=== PATIENT | male | born 1955 | race Caucasian/White ===

== ENCOUNTER 2023-07-16 11:53 | Outpatient (CLI) | payer MEDICARE | END 2023-07-16 11:54 | disposition critical access hospital (66) | LOC: EMS 11:53 | DX: R55 Syncope and collapse (principal); S09.90XA Unspecified injury of head, initial encounter; R41.0 Disorientation, unspecified; R42 Dizziness and giddiness; W18.39XA Other fall on same level, initial encounter; Y92.59 Other trade areas as the place of occurrence of the external cause | CPT/HCPCS: A0425; A0427 ==

== ENCOUNTER 2023-07-16 12:17 | Emergency (ER) | payer MEDICARE ==
[2023-07-16] MEDS ORDERED: SODIUM CHLORIDE 0.9% 1,000 ML IV STA (12:27)
--- NOTE | 2023-07-16 12:30 | ED Physician Documentation ---
History of Present Illness - Stated complaint Stated Complaint: SYNCOPE - Additonal information Additional information: 68-year-old male is brought to the emergency department for evaluation of a syncopal episode. Reportedly this gentleman [place] and visiting from [place]. He is in a vehicle. He was trying to check into a local motel when he suddenly collapsed. He did fall backwards striking his head. Lapse in consciousness for a few seconds. EMS was summoned to the scene. On arrival they described him as diaphoretic. They also noted that he had a low blood pressure of 98/50. His blood sugar was 123. EKG showed sinus rhythm with PACs. They states that when he woke up he was quite repetitive in his questioning and did not remember the event. Patient describes himself as healthy and takes no medications. Denies any history of hypertension or diabetes. He is a pack per day tobacco user. Also endorses a sixpack of beer daily. Nothing on scene to suggest seizure-like activity, loss of bowel or bladder function. Presentation the emergency department the patient is alert and oriented. Reports that he thinks he fainted but does not remember the event. Denies chest pain or shortness of air. He has a blood pressure of 126/53. EKG is sinus on the monitor. No fevers. Unremarkable cardiopulmonary exam. Normal neurological exam. NIHSS is 0. Review of Systems Constitutional: reports: Reviewed and negative Nose: reports: Reviewed and negative Cardiac: reports: Reviewed and negative Respiratory: reports: Reviewed and negative GI: reports: Reviewed and negative : reports: Reviewed and negative Skin: reports: Reviewed and negative Musculoskeletal: reports: Reviewed and negative Neurologic: reports: Numbness, Difficulty speaking, Near syncope, Syncope, LOC. denies: Confused, Headache, Head injury Psychiatric: reports: Reviewed and negative PD PAST MEDICAL HISTORY - Allergies Allergies/Adverse Reactions: Allergies Allergy/AdvReac Type Severity Reaction Status Date / Time codeine Allergy Nausea Verified 07/16/23 12:42 PD ED PE NORMAL - General General: Alert and oriented X 3, No acute distress - HEENT HEENT: PERRL. No: Moist mucous membranes (Dry mouth and tongue) - Neck Neck: Supple, no meningeal sign - Cardiac Cardiac: RRR, No murmur, Strong equal pulses - Respiratory Respiratory: No respiratory distress, Clear bilaterally - Abdomen Abdomen: Normal bowel sounds, Soft - Back Back: No CVA TTP - Derm Derm: Normal color, Warm and dry - Neuro Neuro: Alert and oriented X 3, head of english 2-12 intact Eye Opening: Spontaneous Motor: Obeys Commands Verbal: Oriented GCS Score: 15 Results - Vitals Vitals: Vital Signs - 24 hr 07/16/23 07/16/23 07/16/23 12:38 13:56 13:58 Temperature 36.6 C Heart Rate 95 Heart Rate [ 94 Sitting] Heart Rate [ 96 Standing] Heart Rate [ 91 Supine] Respiratory 17 Rate Blood Pressure 121/83 H 120/84 H Blood Pressure 132/82 H [Sitting] Blood Pressure 120/84 H [Standing] Blood Pressure 123/90 H [Supine] O2 Saturation 100 07/16/23 15:00 Temperature Heart Rate 83 Heart Rate [ Sitting] Heart Rate [ Standing] Heart Rate [ Supine] Respiratory 18 Rate Blood Pressure 130/109 H Blood Pressure [Sitting] Blood Pressure [Standing] Blood Pressure [Supine] O2 Saturation 98 Oxygen O2 Source Room air - EKG (time done) 1228 EKG releavant findings:: EKG personally interpreted by author of this note. Relevant findings are: Rate: Rate (enter#) (93) Rhythm: NSR [place]: Normal Intervals: Normal [place]. No: Prolonged QT QRS: Poor R wave progression Ischemia: Normal ST segments Compare to prior EKG: Old EKG unavailable Computer interpretation: Agree with computer - Labs Labs: Laboratory Tests 07/16/23 07/16/23 07/16/23 12:42 12:42 14:33 WBC 7.5 RBC 3.87 L Hgb 11.5 L Hct 34.3 L MCV 88.6 MCH 29.7 MCHC 33.5 RDW 13.8 Plt Count 267 MPV 9.6 Neut # (Auto) 5.0 Lymph # (Auto) 1.5 [place] # (Auto) 0.7 Eos # (Auto) 0.2 Baso # (Auto) 0.1 Absolute Nucleated RBC 0.00 Nucleated RBC % 0.0 Sodium 141 Potassium 3.5 Chloride 108 Carbon Dioxide 26 Anion Gap 7.0 BUN 10 Creatinine 0.7 Estimated GFR (MDRD) 112 Glucose 84 Calcium 8.7 Phosphorus 3.1 Magnesium 1.6 L Total Bilirubin 0.7 AST 13 ALT 15 Alkaline Phosphatase 70 Troponin I High Sens 155.0 H* 147.0 H* Total Protein 5.6 L Albumin 3.6 Globulin 2.0 L Albumin/Globulin Ratio 1.8 Lipase 19 Ethyl Alcohol 54.0 - Rads (name of study) right leg Relevant Findings:: Final report received (No acute bony abnormality. No gross radiopaque foreign bodies are seen.) Procedures - Laceration (location) right leg Length in cm: 5 Wound type: Curved, Irregular, Into muscle, Contaminated Neurovascular status: Sensory intact Anesthesia: Lidocaine 1% Wound preparation: Chlorhexadine, Irrigated copiously NS, Debrided moderately Skin layer closure: Interrupted, Size #-0 - enter number (4), Sutures - enter # (8) Other: No complications, Tetanus UTD PD Medical Decision Making - ED course Complexity details: reviewed results, d/w patient ED course: 68-year-old male presents emergency department for evaluation of syncope. Was checking into a local hotel when he just suddenly fainted. He does not remember the fainting event but denies that he was having chest pain or shortness of air. No palpitations. On presentation the emergency department he reported that he felt fine and was desiring to be discharged. For EMS he was noted to have a mildly low blood pressure in the 90s over 60s but on presentation to the emergency department was normotensive. His EKG showed sinus rhythm without ischemic changes. His orthostatics were negative. In total the patient received a liter of IV fluid. He was denying chest pain and shortness of air for the entire duration of his ED visit. We did obtain CBC, electrolytes and troponin. Initial troponin was 155. On repeat about 90 minutes later static at 147. I discussed with patient my concern that the cause of his syncope could have been a cardiac arrhythmia resulting in an NSTEMI or even a primary type II PR. However [facility] does not have cardiology services. I offered to transfer the patient to a [facility] that would have the capability for stress testing and further restratification. The patient declined to stay. He chose to leave AGAINST MEDICAL ADVICE. He understands that he can return at any time with no questions asked. While here in the emergency department he did receive 325 mg of aspirin and was advised to begin taking a daily aspirin on discharge. He was also advised on how imperative in urgent it is that he get seen by a acid tank cleaner. It should be noted the patient lives in [place] and is visiting the [facility]. The usual emergent return precautions were discussed. Departure - Departure Disposition: Against Medical Advice Clinical Impression: NSTEMI (non-ST elevated myocardial infarction) Syncope Qualifiers: Syncope type: unspecified Qualified Code(s): R55 - Syncope and collapse Condition: Stable Record reviewed to determine appropriate education?: Yes Instructions: Heart Attack Dc Comments: Calderon you are seen today in the emergency department after fainting when getting ready check into a hotel. Your labs today showed signs that you are having a heart attack. Your troponin level was elevated. I believe you are having a form of heart attack called a non-ST elevated myocardial infarction. I have offered to continue to treat you here or transfer you to a hospital that has a higher level of care. You have declined to stay. You are leaving AGAINST MEDICAL ADVICE with the understanding that you can return at any time for further care and evaluation, no questions asked. It is imperative however that you stop smoking and try to cut back the amount you drink. I would recommend that you begin taking a daily 81 mg aspirin. You will need to be seen by a acid tank cleaner in the very near future for further evaluation, testing and risk management of your heart attack.
[2023-07-16 12:48] LABS: BASOPHILS # (AUTO) 0.1 10^3/uL (0.0-0.1); BASOPHILS % (AUTO) 1.1 %; EOSINOPHILS # (AUTO) 0.2 10^3/uL (0.0-0.7); EOSINOPHILS % (AUTO) 2.4 %; HCT - HEMATOCRIT 34.3 % (42.0-52.0); HGB - HEMOGLOBIN 11.5 g/dL (14.0-18.0); LYMPHOCYTES # (AUTO) 1.5 10^3/uL (1.5-3.5); LYMPHOCYTES % (AUTO) 20.2 %; MEAN CORPUSCULAR HEMOGLOBIN 29.7 pg (27.0-31.0); MEAN CORPUSCULAR HGB CONC 33.5 g/dL (32.0-36.0); MEAN CORPUSCULAR VOLUME 88.6 fL (80.0-94.0); MEAN PLATELET VOLUME 9.6 fL (7.4-11.4); MONOCYTES # (AUTO) 0.7 10^3/uL (0.0-1.0); MONOCYTES % (AUTO) 9.6 %; NEUTROPHILS % (AUTO) 66.4 %; PLT - PLATELET COUNT 267 10^3/uL (130-450); RED BLOOD COUNT 3.87 10^6/uL (4.70-6.10); RED CELL DISTRIBUTION WIDTH 13.8 % (12.0-15.0); WHITE BLOOD COUNT 7.5 x10^3/uL (4.8-10.8)
--- NOTE | 2023-07-16 12:54 | XRAY Report ---
PROCEDURE: Chest 1 View X-Ray INDICATIONS: Chest Pain TECHNIQUE: One view of the chest was acquired. COMPARISON: None. FINDINGS: Surgical changes and devices: None. Lungs and pleura: No pleural effusions or pneumothorax. The lungs are clear. Mediastinum: Mediastinal contours appear normal. Heart size is normal. Bones and chest wall: No suspicious bony lesions. Overlying soft tissues appear unremarkable. IMPRESSION: No acute cardiopulmonary process. Reviewed by: Tanvir Rivera MD on 07/16/2023 12:53 PM PDT Approved by: Tanvir Rivera MD on 07/16/2023 12:53 PM PDT Station ID: [id number]
[2023-07-16 13:08] LABS: ALBUMIN 3.6 g/dL (3.2-5.5); ALBUMIN/GLOBULIN RATIO 1.8 (1.0-2.2); BILIRUBIN,TOTAL 0.7 mg/dL (0.2-1.0); CALCIUM 8.7 mg/dL (8.5-10.3); CREATININE 0.7 mg/dL (0.6-1.3); MAGNESIUM 1.6 mg/dL (1.7-2.3); PHOSPHORUS 3.1 mg/dL (2.5-5.0); POTASSIUM 3.5 mmol/L (3.5-4.5); TOTAL PROTEIN 5.6 g/dL (6.4-8.9)
[2023-07-16] MEDS ORDERED: ASPIRIN 325 MG TABLET PO STA (13:41)
[2023-07-16 15:14] VITALS: BP 130/109; O2SAT 98
== END 2023-07-16 15:53 | disposition left against medical advice (07) ==
LOC: ED 12:17
DX: I21.4 Non-ST elevation (NSTEMI) myocardial infarction (principal)
CPT/HCPCS: 36415; 71045; 80053; 83690; 83735; 84100; 84484; 85025; 93005; 96360; 96361; 99284; A9270; G0480; 80320

== ENCOUNTER 2023-07-17 09:25 | Outpatient (CLI) | payer MEDICARE | END 2023-07-17 09:26 | disposition critical access hospital (66) | LOC: EMS 09:25 | DX: M79.604 Pain in right leg (principal); M25.511 Pain in right shoulder; W01.0XXA Fall on same level from slipping, tripping and stumbling without subsequent striking against object, initial encounter; Y92.481 Parking lot as the place of occurrence of the external cause | CPT/HCPCS: A0425; A0429 ==

== ENCOUNTER 2023-07-17 09:47 | Emergency (ER) | payer MEDICARE ==
[2023-07-17] MEDS ORDERED: MORPHINE 2 MG/ML CARPUJECT IVP STA (10:21)
[2023-07-17] MEDS ORDERED: ONDANSETRON 4 MG/2 ML VIAL IVP STA (10:21)
[2023-07-17] MEDS ORDERED: HYDROmorphone 1 MG/ML CARPUJECT IVP STA (11:12)
--- NOTE | 2023-07-17 11:12 | XRAY Report ---
PROCEDURE: Hip w/Pelvis 2-3V RT INDICATIONS: fall/pain TECHNIQUE: AP pelvis with lateral view(s) of the right hip(s). COMPARISON: Correlation is made with the accompanying plain films. FINDINGS: Bones: There is a moderately displaced, moderately angulated, mildly comminuted fracture through the mid portion of the right femoral neck. No hip dislocation is seen. No fractures of the bones of the pelvis Soft tissues: No suspicious soft tissue calcifications or masses. IMPRESSION: Moderately displaced, moderately angulated femoral neck fracture. Reviewed by: Konrad Worrell MD on 07/17/2023 10:11 AM [facility] Approved by: Konrad Worrell MD on 07/17/2023 10:11 AM [facility] Station ID: [id number]
--- NOTE | 2023-07-17 11:13 | XRAY Report ---
PROCEDURE: Knee 3 View RT INDICATIONS: fall/pain TECHNIQUE: 3 views of the right knee(s) were acquired. COMPARISON: Correlation is made with the accompanying plain films. FINDINGS: Bones: No fractures or dislocations. No suspicious bony lesions. The joint spaces appear well-prese rved. Mild underlying degenerative changes are seen. Soft tissues: No knee joint effusion. No suspicious soft tissue calcifications or masses. IMPRESSION: No acute bony abnormality. Reviewed by: Konrad Worrell MD on 07/17/2023 10:12 AM [facility] Approved by: Konrad Worrell MD on 07/17/2023 10:12 AM [facility] Station ID: [id number]
--- NOTE | 2023-07-17 11:13 | XRAY Report ---
PROCEDURE: Shoulder 3 View RT INDICATIONS: fall/pain TECHNIQUE: 3 views of the shoulder were acquired. COMPARISON: Correlation is made with the accompanying plain films. FINDINGS: Bones: There is an impacted, comminuted fracture of the right humeral head and neck. No dislocation can be seen. The visualized ribs appear intact. Age-appropriate degenerative changes are seen. Soft tissues: No suspicious soft tissue calcifications. The visualized lungs are within normal limi ts. IMPRESSION: Impacted, comminuted fracture of the right humeral head and neck. Reviewed by: Konrad Worrell MD on 07/17/2023 10:11 AM [facility] Approved by: Konrad Worrell MD on 07/17/2023 10:11 AM [facility] Station ID: [id number]
--- NOTE | 2023-07-17 11:14 | XRAY Report ---
PROCEDURE: Ankle 3 View RT INDICATIONS: fall/pain TECHNIQUE: 3 views of the ankle were acquired. COMPARISON: Correlation is made with the accompanying plain films. FINDINGS: Bones: No fractures or dislocations. Ankle mortise is normally aligned. No suspicious bony lesions . The talar dome demonstrates an unremarkable appearance. Age-appropriate degenerative changes are seen. Soft tissues: No tibiotalar joint effusion. Achilles tendon appears normal. IMPRESSION: No acute bony abnormality. Reviewed by: Konrad Worrell MD on 07/17/2023 10:12 AM [facility] Approved by: Konrad Worrell MD on 07/17/2023 10:12 AM [facility] Station ID: [id number]
[2023-07-17 11:24] LABS: BASOPHILS # (AUTO) 0.1 10^3/uL (0.0-0.1); BASOPHILS % (AUTO) 0.4 %; EOSINOPHILS % (AUTO) 0.1 %; HCT - HEMATOCRIT 34.2 % (42.0-52.0); HGB - HEMOGLOBIN 11.7 g/dL (14.0-18.0); LYMPHOCYTES # (AUTO) 1.2 10^3/uL (1.5-3.5); LYMPHOCYTES % (AUTO) 7.9 %; MEAN CORPUSCULAR HEMOGLOBIN 29.7 pg (27.0-31.0); MEAN CORPUSCULAR HGB CONC 34.2 g/dL (32.0-36.0); MEAN CORPUSCULAR VOLUME 86.8 fL (80.0-94.0); MEAN PLATELET VOLUME 9.8 fL (7.4-11.4); MONOCYTES % (AUTO) 7.2 %; NEUTROPHILS # (AUTO) 12.2 10^3/uL (1.5-6.6); PLT - PLATELET COUNT 252 10^3/uL (130-450); RED BLOOD COUNT 3.94 10^6/uL (4.70-6.10); RED CELL DISTRIBUTION WIDTH 13.7 % (12.0-15.0); WHITE BLOOD COUNT 14.5 x10^3/uL (4.8-10.8)
[2023-07-17 11:35] LABS: BUN - BLOOD UREA NITROGEN 12 mg/dL (6-20); CALCIUM 8.5 mg/dL (8.5-10.3); CARBON DIOXIDE - CO2 23 mmol/L (21-32); CHLORIDE 95 mmol/L (101-111); CREATININE 0.8 mg/dL (0.6-1.2); ETOH - ETHANOL < 10.0 mg/dL; GFR - MDRD 96 (>89); GLUCOSE 87 mg/dL (70-100); POTASSIUM 4.3 mmol/L (3.5-5.0); SODIUM 130 mmol/L (135-145)
--- NOTE | 2023-07-17 12:21 | ED Physician Documentation ---
History of Present Illness - Stated complaint Stated Complaint: GLF - Chief complaint Chief Complaint: Trauma Ext - History obtained from History obtained from: Patient, EMS - Additonal information Additional information: Patient is a 68-year-old male presenting for evaluation of right shoulder and right hip pain after a fall this morning. Patient states that he was walking down an embankment when he had pain in his right ankle causing him to fall to his right side. He does not believe he hit his head or had LOC. Of note he was seen in our emergency department yesterday after a syncopal episode. He did hit his head yesterday. He did not have neuroimaging yesterday. His labs were abnormal for an elevated troponin. Patient left AGAINST MEDICAL ADVICE and did not want further evaluation for the abnormal troponin or syncope.Patient denies chest pain, shortness of air, headache. He does not take a blood thinner. He is visiting from [place]. He denies any prior known medical history.He admits to drinking 6 beers daily but has not had any alcohol since 2 days ago. 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 Ortho: Other - Present Medications Home Medications: Ambulatory Orders Medication Instructions Recorded Confirmed No Known Home Medications 07/17/23 07/17/23 - Allergies Allergies/Adverse Reactions: Allergies Allergy/AdvReac Type Severity Reaction Status Date / Time codeine Allergy Nausea Verified 07/17/23 10:33 - Social History Does the pt smoke?: Yes Smoking Status: Current every day smoker Does the pt drink ETOH?: Yes ETOH Use: Beer Does the pt have substance abuse?: No PD ED PE NORMAL - General General: Alert and oriented X 3, No acute distress, Well developed/nourished - HEENT HEENT: Atraumatic, Moist mucous membranes, Pharynx benign - Neck Neck: Supple, no meningeal sign, No bony TTP, C-Spine cleared by NEXUS criteria - Cardiac Cardiac: RRR, No murmur, Strong equal pulses - Respiratory Respiratory: No respiratory distress, Clear bilaterally - Abdomen Abdomen: Soft, Non tender - Derm Derm: Warm and dry - Extremities Extremities: Other (Tenderness to right shoulder and right hip with significant pain on range of motion; Also reports pain to right knee.) - Neuro Neuro: Alert and oriented X 3, [place] 2-12 intact, No motor deficit, Normal speech Eye Opening: Spontaneous Motor: Obeys Commands Verbal: Oriented GCS Score: 15 Results - Vitals Vitals: Vital Signs - 24 hr 07/17/23 07/17/23 07/17/23 09:58 11:50 11:59 Temperature 36.8 C Heart Rate 100 99 Respiratory 18 18 Rate Blood Pressure 126/98 H 147/84 H O2 Saturation 100 88 L 96 If not protocol 1 : Oxygen Flow, liters/minute 07/17/23 12:56 Temperature Heart Rate 98 Respiratory 18 Rate Blood Pressure 119/72 O2 Saturation 95 If not protocol 1 : Oxygen Flow, liters/minute Oxygen O2 Source Nasal cannula - EKG (time done) 1200 EKG releavant findings:: EKG personally interpreted by author of this note. Relevant findings are: Rate 97, NSR, - Labs Labs: Laboratory Tests 07/17/23 07/17/23 07/17/23 11:19 11:19 11:19 WBC 14.5 H RBC 3.94 L Hgb 11.7 L Hct 34.2 L MCV 86.8 MCH 29.7 MCHC 34.2 RDW 13.7 Plt Count 252 MPV 9.8 Neut # (Auto) 12.2 H Lymph # (Auto) 1.2 L [place] # (Auto) 1.0 Eos # (Auto) 0.0 Baso # (Auto) 0.1 Absolute Nucleated RBC 0.00 Nucleated RBC % 0.0 Sodium 130 L Potassium 4.3 Chloride 95 L Carbon Dioxide 23 Anion Gap 12.0 BUN 12 Creatinine 0.8 Estimated GFR (MDRD) 96 Glucose 87 Calcium 8.5 Troponin I High Sens 29.7 H* Ethyl Alcohol < 10.0 PD Medical Decision Making - ED course Complexity details: reviewed results, re-evaluated patient, d/w patient ED course: Patient is a 60-year-old male presenting for evaluation of right shoulder and right hip pain after a fall today. He was seen yesterday in the emergency department after syncopal episode and found to have an abnormal troponin. He left AGAINST MEDICAL ADVICE and did not want to stay for further evaluation of his syncope or abnormal troponin. He denies syncope today. He denies head injury today but did have a head injury yesterday.X-rays were obtained of the right shoulder, right hip, right knee and right ankle. He does have a right femoral neck fracture as well as a proximal right humeral fracture. Neurovascularly intact. I did discuss the case with our admitting hospitalist who felt that given unclear etiology of the patient's syncope yesterday with an abnormal troponin that he is too complex for admission at our hospital for clearance prior to hip surgery.CBC, chemistry and troponin were obtained and reviewed. Troponin has significantly down trended. EKG remains unchanged. Discussed the case with [facility] and patient has been accepted for transfer. Patient had improvement in his pain with IV morphine and IV Dilaudid. 1220 - Discussed with Dr. Rojo, ED attending at [facility]. Accepts the patient for transfer. Aware that CT head and C-spine were not obtained and that troponin has down trended today. Departure - Departure Disposition: 02 Transfer Acute Care Hosp Clinical Impression: Fracture of femoral neck, right, Right humeral fracture, Elevated troponin, Hyponatremia Condition: Fair Forms: PCP List Discharge Date/Time: 07/17/23 12:54
[2023-07-17 12:58] VITALS: BP 119/72; O2SAT 95
== END 2023-07-17 12:54 | disposition short-term general hospital (02) ==
LOC: EDUNIT# → ED 09:47
DX: S72.001A Fracture of unspecified part of neck of right femur, initial encounter for closed fracture (principal); S42.301A Unspecified fracture of shaft of humerus, right arm, initial encounter for closed fracture; W18.30XA Fall on same level, unspecified, initial encounter; Y93.01 Activity, walking, marching and hiking; Y92.89 Other specified places as the place of occurrence of the external cause; R77.8 Other specified abnormalities of plasma proteins; E87.1 Hypo-osmolality and hyponatremia; F17.200 Nicotine dependence, unspecified, uncomplicated
CPT/HCPCS: 36415; 73030; 73502; 73562; 73610; 80048; 84484; 85025; 93005; 96374; 96375; 99285; G0480; J1170; 80320